=== PATIENT | male | born 1995 | race Caucasian/White ===

== ENCOUNTER 2017-07-26 23:47 | Emergency (ER) | payer OTHER ==
[2017-07-27] MEDS ORDERED: Ketorolac Tromethamine 60 MG/2 ML VIAL ONE (00:09)
--- NOTE | 2017-07-27 08:09 | RAD ---
SINGLE VIEW OF THE CHEST: COMPARISON: None. HISTORY: Chest pain. FINDINGS: Single view of the chest shows a normal sized cardiomediastinal silhouette. There is no evidence of c onsolidation, mass, or pleural effusion. The bones are unremarkable. IMPRESSION: No evidence of acute cardiopulmonary disease. POS: [facility]
== END 2017-07-27 01:00 | disposition home or self-care (01) ==
LOC: MADERS 23:47
DX: S20.211A Contusion of right front wall of thorax, initial encounter (principal); F17.220 Nicotine dependence, chewing tobacco, uncomplicated; X58.XXXA Exposure to other specified factors, initial encounter
CPT/HCPCS: 71045; 96372; J1885

== ENCOUNTER 2017-09-23 08:09 | Emergency (ER) | payer OTHER, SELFPAY ==
[2017-09-23] MEDS ORDERED: Gabapentin 100 MG CAP ONE (08:41)
[2017-09-23] MEDS ORDERED: Ketorolac Tromethamine 60 MG/2 ML VIAL ONE (08:41)
[2017-09-23] MEDS ORDERED: Acetaminophen 500 MG TAB ONE (08:41)
== END 2017-09-23 08:55 | disposition home or self-care (01) ==
LOC: MADERS 08:09
DX: M54.5 Low back pain (principal); F17.220 Nicotine dependence, chewing tobacco, uncomplicated
CPT/HCPCS: 96374; J1885

== ENCOUNTER 2017-10-24 18:24 | Emergency (ER) | payer OTHER ==
[2017-10-24] MEDS ORDERED: Ibuprofen 800 MG TAB ONE (19:08)
--- NOTE | 2017-10-24 19:12 | RAD ---
4 VIEWS OF RIGHT ELBOW: Date: 10/24/17 COMPARISON: None. HISTORY: Trauma to the left elbow with tenderness over the medial epicondyle. FINDINGS: Four views of the right elbow shows no evidence of acute fracture or dislocation. No elbow effusion i s seen. No degenerative changes are present. IMPRESSION: No evidence of acute osseous abnormality. POS: [facility]
== END 2017-10-24 19:17 | disposition home or self-care (01) ==
LOC: MADERS 18:24
DX: S50.01XA Contusion of right elbow, initial encounter (principal); F17.220 Nicotine dependence, chewing tobacco, uncomplicated; W18.30XA Fall on same level, unspecified, initial encounter